=== PATIENT | female | born 1995 | race African-American/Black ===

== ENCOUNTER 2017-01-22 12:29 | Observation (INO) | payer MEDICAID, OTHER ==
[~2017-01-22] VITALS: Ht 167.6 cm; Wt 75.7 kg
== END 2017-01-22 13:55 | disposition home or self-care (01) ==
LOC: L&D 12:29
PROVIDERS: ADMIT Specialist; ATTEND Specialist
DX: O36.8130 Decreased fetal movements, third trimester, not applicable or unspecified (principal); O48.0 Post-term pregnancy; Z3A.41 41 weeks gestation of pregnancy
CPT/HCPCS: 76815; 76818; 99281; G0378

== ENCOUNTER 2019-01-28 12:34 | Emergency (ER) | payer MEDICAID, OTHER ==
[~2019-01-28] VITALS: Ht 165.1 cm; Wt 59.0 kg
[2019-01-28 12:49] VITALS: BP 104/65
== END 2019-01-28 15:20 | disposition left against medical advice (07) ==
LOC: ER 12:34
DX: Z53.21 Procedure and treatment not carried out due to patient leaving prior to being seen by health care provider (principal)

== ENCOUNTER 2022-12-29 12:41 | Emergency (ER) | payer OTHER ==
[~2022-12-29] VITALS: Ht 170.2 cm; Wt 58.0 kg
[2022-12-29 12:47] VITALS: BP 119/80; PULSE 97; RESP 17; TEMP 98.5; O2SAT 100
[2022-12-29] MEDS ORDERED: FAMOTIDINE 20MG/2ML VIAL IV STA (12:54)
[2022-12-29] MEDS ORDERED: KETOROLAC 30MG/ML VIAL IV STA (12:54)
[2022-12-29] MEDS ORDERED: MAGNESIUM/ALUMINUM HYDROXIDE/SIMETHICONE 30ML UDC PO STA (12:54)
[2022-12-29] MEDS ORDERED: SODIUM CHLORIDE 0.9% 1,000 ML IV ONE (13:00)
== END 2022-12-29 15:15 | disposition left against medical advice (07) ==
LOC: ER 12:48
DX: R10.13 Epigastric pain (principal); R07.89 Other chest pain
CPT/HCPCS: 99283; 93005; J7030